=== PATIENT | female | born 1985 | race Hispanic/Latino ===

== ENCOUNTER 2022-05-16 00:33 | Emergency (ER) | payer OTHER ==
[2022-05-16 01:13] VITALS: BP 127/75
== END 2022-05-16 01:38 | disposition left against medical advice (07) ==
LOC: EDH 00:33
DX: F10.129 Alcohol abuse with intoxication, unspecified (principal); Z53.21 Procedure and treatment not carried out due to patient leaving prior to being seen by health care provider; Y90.9 Presence of alcohol in blood, level not specified